=== PATIENT | male | born 1980 | race Caucasian/White ===

== ENCOUNTER 2023-07-01 16:25 | Emergency (ER) | payer SELFPAY ==
[2023-07-01 16:30] VITALS: BP 132/98; PULSE 88; RESP 18; TEMP 36.8; O2SAT 97; BMI 31.8
--- NOTE | 2023-07-01 17:00 | PC.NURSE ---
Pt states that he came to the ED today because he has a growth on the back of his head that is causing pain and blurry vision and he also wants to have testing done for STD. Pt states that he has been taking tylenol migraine for the pain. Reports that he once had the growth removed 10 years ago. [id number].
[2023-07-01 18:17] LABS: Urine N gonorrhoeae NOT DETECTED
[2023-07-01 18:18] LABS: Urine Chlamydia NOT DETECTED
== END 2023-07-01 19:30 | disposition left against medical advice (07) ==
PROVIDERS: Emergency Provider Emergency Medicine
DX: R51.9 Headache, unspecified (principal); R22.0 Localized swelling, mass and lump, head
CPT/HCPCS: 81003; 87491; 87591; 99282